=== PATIENT | male | born 1960 | race Caucasian/White ===

== ENCOUNTER 2016-12-20 12:41 | Outpatient (CLI) | payer BC ==
--- NOTE | 2016-12-23 10:55 | PFT ---
PATIENT HISTORY: HEIGHT: 71 IN WEIGHT: 134 LBS SMOKER: NEVER HOW LONG: PACKS PER DAY: PRODUCTIVE COUGH: NO LUNG DISEASE: PULMONARY FIBROSIS PHYSICIAN INTERPRETATION FINAL REPORT: FEV1 is 2.8 liters, it does not change with bronchodilators. Best FVC is 3.74 liters. Best Mid flows are 2.19 liters. Total lung capacity is reduced to mild to moderate degree at 5.04 liters. RV/TLC ratio is normal. Diffusion is normal. IMPRESSION: Overall, this study is suggestive of a mild to moderate restrictive defect with normal diffusion. Gift Packer: MOSHE Ladies Suit Operator: MOSHE LEWIS
== END 2016-12-20 12:42 | disposition home or self-care (01) ==
LOC: CP 12:41
PROVIDERS: ATTEND Internal Medicine
DX: J98.4 Other disorders of lung (principal)
CPT/HCPCS: 94060; 94727; 94729

== ENCOUNTER 2018-01-24 13:31 | Outpatient (CLI) | payer BC | END 2018-01-24 13:32 | disposition home or self-care (01) | LOC: CP 13:31 | PROVIDERS: ATTEND Internal Medicine | DX: J62.8 Pneumoconiosis due to other dust containing silica (principal) | CPT/HCPCS: 94010; 94729 ==

== ENCOUNTER 2021-06-29 14:19 | Outpatient (CLI) | payer BC | END 2021-06-29 14:20 | disposition home or self-care (01) | LOC: BICRAD 14:19 | PROVIDERS: ATTEND Family Medicine | DX: Z77.098 Contact with and (suspected) exposure to other hazardous, chiefly nonmedicinal, chemicals (principal); J98.4 Other disorders of lung | CPT/HCPCS: 71046 ==